=== PATIENT | male | born 1945 | race Caucasian/White ===

== ENCOUNTER 2018-12-10 09:33 | Outpatient (CLI) | payer BC, MEDICARE ==
[2018-12-10] VITALS (9 sets, daily range): BP systolic 116–136; BP diastolic 67–86
[~2018-12-10] VITALS: Ht 182.9 cm; Wt 85.0 kg
[~2018-12-10 09:33] MED LIST: ASPI-4 PO; CLOP75TA35 PO; LEVO75TA PO; SIMV20TA5 PO
[2018-12-10] MEDS ORDERED: nitroGLYCERIN 0.4mg SUBLingual tab SL PRN (10:30)
[2018-12-10] MEDS ORDERED: aminophylline 250mg/10ml inj. IV PRN (10:30)
[2018-12-10] MEDS ORDERED: normal saline 500ml IV soln 500 ML IV ONE (10:30)
[2018-12-10] MEDS ORDERED: regadenoson 0.4mg/5ml syringe IV ONE ×2 (10:30→10:48)
[2018-12-10] MEDS ORDERED: FISH12002 PO (10:36)
[2018-12-10] MEDS ORDERED: LIOT25TA6 PO (10:36)
[2018-12-10] MEDS ORDERED: CLOP75TA15 PO (10:36)
[2018-12-10] MEDS ORDERED: ATEN50TA PO (10:36)
[2018-12-10] MEDS ORDERED: ASPI81TA52 PO (10:36)
[2018-12-10] MEDS ORDERED: ATOR-2 PO (10:36)
[2018-12-10] MEDS ORDERED: AMLO10TA PO (10:36)
[2018-12-10] MEDS ORDERED: CHOL2000 PO (10:36)
[2018-12-10] MEDS ORDERED: LEVO100T PO (10:36)
[2018-12-10] MEDS ORDERED: aminophylline inj. 10 ML IV ONE (10:48)
== END 2018-12-10 23:59 | disposition home or self-care (01) ==
LOC: RAD 09:33
PROVIDERS: ATTEND Internal Medicine Cardiovascular Disease
DX: I10 Essential (primary) hypertension (principal); I25.10 Atherosclerotic heart disease of native coronary artery without angina pectoris; I48.91 Unspecified atrial fibrillation
CPT/HCPCS: 78452; 93017; A9500; J0280; J7030

== ENCOUNTER 2019-01-17 22:23 | Emergency (ER) | payer BC, MEDICARE ==
[~2019-01-17] VITALS: Ht 182.9 cm; Wt 84.0 kg
[~2019-01-17 22:23] MED LIST changes: +AMLO10TA PO; -ASPI-4 PO; +ASPI81TA52 PO; +ATEN50TA PO; +ATOR-2 PO; +CHOL2000 PO; +CLOP75TA15 PO; -CLOP75TA35 PO; +FISH12002 PO; +LEVO100T PO; -LEVO75TA PO; +LIOT25TA6 PO; -SIMV20TA5 PO
[2019-01-18 00:32] LABS: ALANINE AMINOTRANSFERASE 25 U/L (12-78); ALBUMIN 2.9 G/DL (3.4-5.0); ALBUMIN/GLOBULIN RATIO 0.8 (1.1-1.5); ALKALINE PHOSPHATASE 82 IU/L (46-116); ANION GAP 9 (8-16); ASPARTATE AMINO TRANSFERASE 22 U/L (10-37); BILIRUBIN,TOTAL 0.7 MG/DL (0.1-1.0); BLOOD UREA NITROGEN 29 MG/DL (7-18); BUN/CREATININE RATIO 26.6 (5.4-32.0); CALCIUM 8.9 MG/DL (8.5-10.1); CHLORIDE 102 MMOL/L (99-107); CREATININE 1.09 MG/DL (0.60-1.10); GLUCOSE 86 MG/DL (70-104); POTASSIUM 3.6 MMOL/L (3.5-5.1); SODIUM 136 MMOL/L (135-145); TOTAL CARBON DIOXIDE 25.5 MMOL/L (24-32); TOTAL PROTEIN 6.6 G/DL (6.4-8.2); eGFR 67 ML/MIN
[2019-01-18 00:34] LABS: BASOPHILS # (AUTO) 0.1 X10'3 (0-0.2); BASOPHILS % (AUTO) 0.6 % (0-1); EOSINOPHILS # (AUTO) 0.2 X10'3 (0-0.9); EOSINOPHILS % (AUTO) 1.8 % (0-6); HEMATOCRIT 37.2 % (42.0-52.0); HEMOGLOBIN 12.8 g/dl (14.0-17.9); LYMPHOCYTES # (AUTO) 1.5 X10'3 (1.1-4.8); LYMPHOCYTES % (AUTO) 15.5 % (21-51); MEAN CORPUSCULAR HEMOGLOBIN 33.6 PG (27.0-31.0); MEAN CORPUSCULAR HGB CONC 34.4 g/dL (33.0-36.5); MEAN CORPUSCULAR VOLUME 97.7 FL (78-98); MEAN PLATELET VOLUME 7.9 FL (7.4-10.4); MONOCYTES # (AUTO) 0.9 X10'3 (0-0.9); MONOCYTES % (AUTO) 9.6 % (2-12); NEUTROPHILS % (AUTO) 72.5 % (42-75); PARTIAL THROMBOPLASTIN TIME 30 SECONDS (22-32); PLATELET COUNT 244 X10'3 (140-440); RED BLOOD COUNT 3.81 X10'6 (4.70-6.10); RED CELL DISTRIBUTION WIDTH 13.8 % (11.5-14.5); WHITE BLOOD COUNT 9.7 X10'3 (4.5-11.0)
--- NOTE | 2019-01-18 01:05 | NUR ---
pt swished and spit with saline and surgicicell placed
[2019-01-18] MEDS ORDERED: oxymetazoline 15 ML nasal spray NS ONE (01:40)
[2019-01-18 01:51] VITALS: BP 119/82
== END 2019-01-18 02:42 | disposition home or self-care (01) ==
LOC: ER 22:24
DX: K91.841 Postprocedural hemorrhage of a digestive system organ or structure following other procedure (principal); R04.1 Hemorrhage from throat; E78.00 Pure hypercholesterolemia, unspecified; I10 Essential (primary) hypertension; Z98.890 Other specified postprocedural states; Z79.82 Long term (current) use of aspirin; Z79.899 Other long term (current) drug therapy
CPT/HCPCS: 36415; 80053; 85025; 85610; 85730; 99283